=== PATIENT | female | born 1945 | race Caucasian/White ===

== ENCOUNTER 2017-11-19 09:35 | Outpatient (CLI) | payer MEDICARE, OTHER ==
[2015-10-09 11:47] VITALS: BP 140/56
[2017-11-19 11:26] LABS: eGFR (Non-African) > 60
[2017-11-19 17:51] LABS: BASO % 0.5 % (0.0-1.5); EOS % 1.5 % (0.0-6.8); LYMPH ABS # 1.74 thou/uL (0.60-4.00); MCH. 30.3 pg (28.0-34.0); MCV 93.2 fL (80.0-100.0); MONOCYTE ABS # 0.36 thou/uL (0.00-0.90); PLATELET COUNT 344 thou/uL (130-400)
--- NOTE | 2017-11-19 18:10 | Diagnostic Imaging Report ---
KANG ALEXANDRE [facility] [id number] [facility].[address] [address] Report Submission Date: Nov 19, 2017 1:00:38 PM CDT Patient Study Name: GABBY CRANE Date: Nov 19, 2017 9:51:26 AM CDT Modality Type: DX Gender: F Description: CHEST : 45 Institution: [facility] Physician: KANG ALEXANDRE Examination: PA and lateral chest. History: Evaluate lung fontenot. CXR, COUGH FOR ABOUT A MONTH, SMOKER (Hx) Comparison exam: None provided. Findings: PA and lateral views of the chest demonstrates a normal cardiac and mediastinal silhouette. Tortuous aorta. Sternotomy wires. No focal infiltrate. No blunting of the costophrenic margins. Osseous structures are appropriate for age. Impression: No acute pulmonary process. Electronically signed on Nov 19, 2017 1:00:38 PM CDT by: Mervin CROW
== END 2017-11-19 09:36 ==
LOC: LAB 09:35
PROVIDERS: ATTEND Family Medicine
DX: I10 Essential (primary) hypertension (principal); E78.00 Pure hypercholesterolemia, unspecified; N95.1 Menopausal and female climacteric states; M85.89 Other specified disorders of bone density and structure, multiple sites; F17.200 Nicotine dependence, unspecified, uncomplicated
CPT/HCPCS: 71046; 77080; 80053; 80061; 85025

== ENCOUNTER 2017-11-26 10:08 | Outpatient (CLI) | payer MEDICARE, OTHER ==
[2015-10-09 11:47] VITALS: BP 140/56
--- NOTE | 2017-11-26 19:04 | Diagnostic Imaging Report ---
KANG ALEXANDRE [facility] [id number] [facility] [address] [address] Report Submission Date: Nov 26, 2017 10:59:09 AM CDT Patient Study Name: GABBY CRANE Date: Nov 26, 2017 10:09:03 AM CDT Modality Type: DX Gender: F Description: LOWER EXTREMITY : 45 Institution: [facility] Physician: KANG ALEXANDRE Examination: Plain film knees History: PT STATES RIGHT KNEE PAIN X 2 WEEKS. PT STATES NO PREVIOUS TRAUMA OR SURGERIES TO EITHER KNEE. right posterior knee pain (Hx) Findings: 3 views of the right and left knees demonstrates normal cortical margins. No fracture. No dislocation. No joint effusion. Distal left femoral enchondroma. Vascular calcifications. No soft tissue irregularity. Impression: No acute-appearing osseous abnormality Electronically signed on Nov 26, 2017 10:59:09 AM CDT by: Mervin CROW
== END 2017-11-26 10:10 ==
LOC: RAD 10:08
PROVIDERS: ATTEND Family Medicine
DX: M25.561 Pain in right knee (principal); G89.29 Other chronic pain

== ENCOUNTER 2018-08-03 09:51 | Outpatient (CLI) | payer MEDICARE, OTHER ==
[2015-10-09 11:47] VITALS: BP 140/56
--- NOTE | 2018-08-03 13:13 | Diagnostic Imaging Report ---
LORENZO MALDONADO [facility] [address] [facility] [address] [place] [address]. [id number] Report Submission Date: Aug 03, 2018 12:25:16 PM CDT Patient Study Name: GABBY CRANE Date: Aug 03, 2018 10:13:17 AM CDT Modality Type: CT\SR Gender: F Description: CT LUNG CA SCREEN : [birth year] Institution: [facility] Physician: LORENZO MALDONADO Exam: CT chest without contrast. History: Lung cancer screening. Axial images through the thorax without IV contrast is submitted along with sagittal and coronal reformatted images. The examination appears compromised due to patient's large body habitus. Subtle interstitial infiltrates in the posterior lower lung fontenot bilaterally are noted. Some mild thickening to the major fissure inferiorly on the left is noted. No pulmonary nodules are identified. 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 The mainstem pulmonary artery appears to be normal in caliber. Mild degenerative changes in the thoracic spine are noted. The visualized upper abdomen is difficult to evaluate. Impression: Compromised examination. Subtle interstitial infiltrates in the posterior lower lung fontenot bilaterally. 5.5 cm aneurysm noted to the ascending thoracic aorta. Electronically signed on Aug 03, 2018 12:25:16 PM CDT by: Jameson CROW
== END 2018-08-03 09:53 ==
LOC: RAD 09:51
PROVIDERS: ATTEND Family Medicine
DX: Z12.2 Encounter for screening for malignant neoplasm of respiratory organs (principal)
CPT/HCPCS: G0297

== ENCOUNTER 2018-09-30 17:15 | Outpatient (CLI) | payer MEDICARE, OTHER ==
[2015-10-09 11:47] VITALS: BP 140/56
== END 2018-09-30 17:18 ==
LOC: LAB 17:15
PROVIDERS: ATTEND Family Medicine
DX: K52.9 Noninfective gastroenteritis and colitis, unspecified (principal)
CPT/HCPCS: 87045; 87046; 87329; 87427; 87493

== ENCOUNTER 2018-12-14 13:46 | Outpatient (CLI) | payer MEDICARE, OTHER ==
[2015-10-09 11:47] VITALS: BP 140/56
[2018-12-14 14:10] LABS: BASOPHILS % 0.5 % (0.0-1.5); NEUTROPHILS # 6.3 # k/uL (1.4-7.7)
[2018-12-14 14:27] LABS: HDL 51 mg/dL (>40); eGFR (Non-African) > 60
== END 2018-12-14 13:51 ==
LOC: LAB 13:46
PROVIDERS: ATTEND Family Medicine
DX: I10 Essential (primary) hypertension (principal); E78.00 Pure hypercholesterolemia, unspecified
CPT/HCPCS: 36415; 80053; 80061; 85025